=== PATIENT | male | born 1965 | race Caucasian/White ===

== ENCOUNTER → 2021-09-19 | Outpatient (CLI) | payer MEDICARE, OTHER ==
[~2021-09-19] MED LIST: ALPROSTADIL SQ; AMLODIPINE BESY10 MG PO; CLOPIDOGREL75 MG PO; GABAPENTIN800 MG PO; HYDROCODON-ACE1 EAC2 PO; LISINOPRIL20 MG PO; PAPAVERINE SQ; PROAIR DIGIHAL90 MCG INH; [UNRECOGNIZED DRUG - OTHER] SQ
[2021-09-19 10:19] LABS: HEMOGLOBIN 15.2 gm/dl (14.0-17.5); RED BLOOD COUNT 4.57 M/UL (4.20-5.50); WHITE BLOOD COUNT 10.3 K/UL (4.5-11.0)
[2021-09-19 10:39] LABS: BUN/CREATININE RATIO 14 (0-10)
== END ==
LOC: OPSV2 09:20
PROVIDERS: Orthopaedic Surgery
DX: Z01.818 Encounter for other preprocedural examination (principal); G56.02 Carpal tunnel syndrome, left upper limb
CPT/HCPCS: 36415; 80048; 85025; 93005

== ENCOUNTER → 2021-09-26 | Day surgery (SDC) | payer MEDICARE, OTHER ==
[~2021-09-26] MED LIST changes: +ENDOCET 10-3251 EACH PO
== END | disposition home or self-care (01) ==
LOC: OR 07:16
DX: G56.02 Carpal tunnel syndrome, left upper limb (principal); I10 Essential (primary) hypertension; J44.9 Chronic obstructive pulmonary disease, unspecified; Z56.0 Unemployment, unspecified; Z88.8 Allergy status to other drugs, medicaments and biological substances; Z20.822 Contact with and (suspected) exposure to COVID-19; Z86.16 Personal history of COVID-19; Z79.01 Long term (current) use of anticoagulants; Z90.49 Acquired absence of other specified parts of digestive tract
CPT/HCPCS: J1885; J2001; J2250; J2704; J3010; J7120